=== PATIENT | female | born 1995 | race Hispanic/Latino ===

== ENCOUNTER 2020-10-05 14:30 | Emergency (ER) | payer OTHER | END 2020-10-05 16:57 | disposition home or self-care (01) | LOC: EDH 14:30 | DX: S06.0X0A Concussion without loss of consciousness, initial encounter (principal); W18.39XA Other fall on same level, initial encounter; Y93.E1 Activity, personal bathing and showering; Y92.091 Bathroom in other non-institutional residence as the place of occurrence of the external cause; Y99.8 Other external cause status | CPT/HCPCS: 70450; 81025 ==